=== PATIENT | female | born 1995 | race Caucasian/White ===

== ENCOUNTER 2019-09-22 08:22 | Observation (INO) ==
[2019-09-22] MEDS ORDERED: ONDANSETRON 4 MG/2 ML VIAL IV STA (09:56)
[2019-09-22] MEDS ORDERED: SODIUM CHLORIDE 0.9% 1,000 ML IV STA ×2 (09:56→12:28)
[2019-09-22 11:12] LABS: Basophils % 0.1 % (0.0-0.8); Eosinophils % 0.1 % (0.00-10.9); Hematocrit 42.2 VOL% (35.7-47.0); Hemoglobin 13.8 GM/DL (12.0-16.0); Immature Granulocytes % 0.4 %; Immature Granulocytes Absolute 0.03 #; Lymphocytes # 1.4 10*3/uL (1.4-4.0); Lymphocytes % 18.5 % (21.3-54.2); Mean Corpuscular HGB Conc 32.7 GM/DL (32-36); Mean Corpuscular Volume 88.8 FL (87-102); Mean Platelet Volume 9.5 FL (9.6-12.0); Monocytes % 5.2 % (1.7-12.7); Neutrophils % 75.7 % (38.7-73.9); Platelet Count 277 T/CUMM (130-400); Red Blood Count 4.75 MC/CUMM (3.8-5.5); Red Cell Distribution Width 12.6 % (9.3-17.3); White Blood Count 7.5 T/CUMM (4-12)
[2019-09-22 11:14] LABS: Apearance,Urine Slightly Hazy (Clear); Bilirubin,Urine Negative (Negative); Blood, Urine Large mg/dL (Negative); Glucose,Urine (UA) Negative (Negative); Ketones,Urine 20 mg/dL (Negative); Mucus,Urine Occasional /LPF (Occasional); Nitrite,Urine Negative (Negative); Protein,Urine Negative; RBC,Urine 15 /HPF (0-4); Squamous Epithelial Cell,Urine Occasional /HPF (0-10); Urine Color Yellow (Yellow); Urine Specific Gravity 1.009 (1.001-1.035); WBC,Urine 5 /HPF (0-6)
[2019-09-22 11:26] LABS: Alanine Aminotransferase 17 U/L (13-56); Albumin 2.7 G/DL (3.4-5.0); Alkaline Phosphatase 67 U/L (45-117); Amylase 54 U/L (25-115); Aspartate Amino Transferase 19 U/L (0-37); Bilirubin,Total < 0.39 MG/DL (0.2-1.0); Blood Urea Nitrogen 9 MG/DL (7-18); Calcium 8.8 MG/DL (8.5-10.1); Estimated Glom Filtration Rate 95 ML/MIN; Glucose 80 MG/DL (74-106); Osmolality,Calculated 270.8 MOS/KG (273-304); Total Protein 7.3 G/DL (6.4-8.3)
[2019-09-22] MEDS ORDERED: cefTRIAXone 1,000 MG in SODIUM CHLORIDE 0.9% 100 ML IV STA (12:28)
[2019-09-22] MEDS ORDERED: PROMETHAZINE 25 MG SUPP RECTAL STA (14:16)
[2019-09-22] MEDS ORDERED: BUTALBITAL/ACETAMIN/CAFFEINE 50-325-40 MG TABLET PO PRN (14:23)
[2019-09-22] MEDS ORDERED: CALCIUM CARBONATE CHEW 500 MG TABLET PO PRN (14:24)
[2019-09-22] MEDS ORDERED: guaiFENesin/DM ER 600-30 MG TABLET PO PRN (14:24)
[2019-09-22] MEDS ORDERED: MAGNESIUM SULF RIDER 2 GM in PREMIX 1 EACH IV PRN (14:24)
[2019-09-22] MEDS ORDERED: DEXTROSE 10% 250 ML BAG IV PRN (14:24)
[2019-09-22] MEDS ORDERED: BISACODYL 5 MG TABLET PO PRN (14:24)
[2019-09-22] MEDS ORDERED: SIMETHICONE CHEW 125 MG TABLET PO PRN (14:24)
[2019-09-22] MEDS ORDERED: ONDANSETRON 4 MG/2 ML VIAL IV PRN (14:24)
[2019-09-22] MEDS ORDERED: PROMETHAZINE 25 MG/1 ML VIAL IV PRN (14:24)
[2019-09-22] MEDS ORDERED: LACTULOSE 20 GM/30 ML UDCUP PO PRN (14:24)
[2019-09-22] MEDS ORDERED: MAGNESIUM SULF RIDER 4 GM in PREMIX 1 EACH IV PRN (14:24)
[2019-09-22] MEDS ORDERED: diphenhydrAMINE CAP 25 MG CAPSULE PO PRN (14:24)
[2019-09-22] MEDS ORDERED: GLUCAGON 1 MG VIAL IM PRN (14:24)
[2019-09-22] MEDS ORDERED: DOCUSATE SODIUM 100 MG CAPSULE PO PRN (14:24)
[2019-09-22] MEDS ORDERED: hydrALAZINE 20 MG/1 ML VIAL IV PRN (14:24)
[2019-09-22] MEDS ORDERED: traZODone 50 MG TABLET PO PRN (14:24)
[2019-09-22] MEDS ORDERED: ZALEPLON 5 MG CAPSULE PO PRN (14:24)
[2019-09-22] MEDS ORDERED: ALUMINUM/MAGNES/SIMETH MAX STR 30 ML UDCUP PO PRN (14:24)
[2019-09-22] MEDS ORDERED: ENOXAPARIN 40 MG/0.4 ML SYRINGE SUBCUT SCH (14:30)
[2019-09-22] MEDS ORDERED: LEVOFLOXACIN INJ 500 MG in PREMIX 1 EACH IV SCH (14:30)
[2019-09-22] MEDS: SODIUM CHLORIDE 0.45% 1,000 ML IV SCH ×2 (16:20→22:50)
[2019-09-23 06:14] LABS: Basophils % 0.4 % (0.0-0.8); Eosinophils # 0.1 10*3/uL (0.0-0.87); Eosinophils % 0.9 % (0.00-10.9); Hemoglobin 13.1 GM/DL (12.0-16.0); Immature Granulocytes % 0.4 %; Immature Granulocytes Absolute 0.02 #; Lymphocytes # 1.8 10*3/uL (1.4-4.0); Mean Corpuscular Volume 92.1 FL (87-102); Mean Platelet Volume 9.6 FL (9.6-12.0); Monocytes % 6.6 % (1.7-12.7); Neutrophils % 58.7 % (38.7-73.9); Platelet Count 235 T/CUMM (130-400); Red Blood Count 4.45 MC/CUMM (3.8-5.5); Red Cell Distribution Width 12.4 % (9.3-17.3); White Blood Count 5.6 T/CUMM (4-12)
[2019-09-23 06:39] LABS: Risk Ratio 3.02; Thyroid Stimulating Hormone 1.27 uIU/ml (0.358-3.74); VLDL CHOLESTEROL 27.8 MG/DL
[2019-09-23 06:44] LABS: Alanine Aminotransferase 14 U/L (13-56); Albumin 2.4 G/DL (3.4-5.0); Alkaline Phosphatase 66 U/L (45-117); Aspartate Amino Transferase 17 U/L (0-37); Blood Urea Nitrogen 7 MG/DL (7-18); Calcium 7.9 MG/DL (8.5-10.1); Estimated Glom Filtration Rate 132 ML/MIN; Glucose 53 MG/DL (74-106); Total Protein 6.5 G/DL (6.4-8.3)
[2019-09-23] MEDS: SODIUM CHLORIDE 0.45% 1,000 ML IV SCH (06:44)
[2019-09-23 08:08] LABS: Sedimentation Rate-Westergren 24 MM/HR (0-20)
[2019-09-23] MEDS ORDERED: PANTOPRAZOLE 40 MG VIAL IV SCH (09:00)
[2019-09-23 15:04] VITALS: BP 107/55
== END 2019-09-23 12:03 | disposition home or self-care (01) ==
LOC: N.EDINP 08:22 → N.ED 08:22 → N.EDINP 21:45 → N.2E 23:03
PROVIDERS: ADMIT Internal Medicine; ATTEND Internal Medicine